=== PATIENT | male | born 1960 | race Caucasian/White ===

== ENCOUNTER 2018-11-28 11:46 | Day surgery (SDC) | payer BC ==
[~2018-11-28] VITALS: Ht 180.3 cm; Wt 85.3 kg
[~2018-11-28 11:46] MED LIST: FLUO10 PO; Fish Oil 10001000 MG PO; Lacri-Lube S.O3.5 GM OD; METF500C PO; MULTI VITAMIN1 EACH PO; Prednisone20 MG PO; TUMS500 MG PO
[2018-11-28] MEDS ORDERED: Pravachol40 MG (12:24)
== END 2018-11-28 14:05 | disposition home or self-care (01) ==
LOC: ORSCSDS 11:46
PROVIDERS: Internal Medicine Gastroenterology
PROC: 0DBP8ZX Excision of Rectum, Via Natural or Artificial Opening Endoscopic, Diagnostic (ICD-10-PCS; principal; 2018-11-28 13:00)
DX: Z12.11 Encounter for screening for malignant neoplasm of colon (principal); K62.1 Rectal polyp; Z86.010 Personal history of colon polyps; Z79.899 Other long term (current) drug therapy; E11.9 Type 2 diabetes mellitus without complications; Z79.84 Long term (current) use of oral hypoglycemic drugs
CPT/HCPCS: 82947; 88305; J2704; J7120